=== PATIENT | female | born 1965 | race Caucasian/White ===

== ENCOUNTER → 2017-12-05 | Outpatient (CLI) | payer OTHER ==
--- NOTE | 2017-12-05 16:07 | XR ---
EXAMINATION TYPE: XR wrist complete RT DATE OF EXAM: 12/05/2017 COMPARISON: NONE HISTORY: 52 year-old female right wrist sprain, twisted right wrist, pain TECHNIQUE: 4 views FINDINGS: The radiocarpal and distal radial ulnar joint as well as the midcarpal compartment appear intact. Mil d degenerative change at the first CMC joint. The scapholunate interval is maintained on the navicula r view. Prominent lunate fossa of the radial articular surface likely normal variation in this patien t. No acute fracture or dislocation seen. IMPRESSION: No acute osseous abnormality seen.
== END ==
LOC: RADXRMAIN 15:32
PROVIDERS: ATTEND Emergency Medicine
DX: S63.501A Unspecified sprain of right wrist, initial encounter (principal)